=== PATIENT | male | born 1955 | race Caucasian/White ===

== ENCOUNTER 2018-05-19 08:04 | Day surgery (SDC) | payer BC ==
[2018-05-19] MEDS ORDERED: MIDAZOLAM 1 MG/ML 2 ML INJ ×2 (10:25)
[2018-05-19] MEDS ORDERED: FENTAnyl 50 MCG/ML VIAL (10:26)
== END 2018-05-19 11:14 | disposition home or self-care (01) ==
LOC: GIL 08:04
DX: Z12.11 Encounter for screening for malignant neoplasm of colon (principal); D12.3 Benign neoplasm of transverse colon; K64.8 Other hemorrhoids
CPT/HCPCS: 45380; 88305